=== PATIENT | female | born 1950 | race Caucasian/White ===

== ENCOUNTER 2024-04-12 18:06 | Emergency (ER) | payer MEDICARE, SELFPAY ==
[2024-04-12 18:16] VITALS: BP 165/82
[2024-04-12 18:30] LABS: % Basophils 0.9 % (0-2); % Eosinophils 0.7 % (0-6); % Immature Granulocytes 0.2 % (0-0.5); % Lymphocytes 31.6 % (20.5-51.1); % Monocytes 6.2 % (1.7-9.3); % Neutrophils 60.4 % (42.2-75.2); Absolute Basophils 0.1 10^3/uL (0-0.2); Absolute Lymphocytes 1.8 10^3/uL (1.2-3.4); Absolute Monocytes 0.4 10^3/uL (0.1-0.6); Absolute Neutrophils 3.4 10^3/uL (1.4-6.5); Hematocrit 33.7 % (37.0-47.0); Hemoglobin 11.5 g/dL (12.0-16.0); Mean Corp Hgb Conc. 34.1 g/dL (33.0-37.0); Mean Corpuscular Hgb 30.4 pg (27.0-31.0); Mean Corpuscular Volume 89.2 fL (81.0-99.0); Mean Platelet Volume 10.2 fL (7.4-10.4); Nucleated Red Blood Cells % 0 %; Platelet Count 198 10^3/uL (130-400); Red Blood Cell Count 3.78 10^6/uL (4.20-5.40); Red Cell Dist. Width 14.3 % (11.5-14.5); White Blood Cell Count 5.6 10^3/uL (4.8-10.8)
[2024-04-12 18:58] LABS: ALT (SGPT) 17 U/L (0-35); AST (SGOT) 28 U/L (14-36); Albumin 4.1 g/dl (3.5-5.0); Alkaline Phosphatase 56 U/L (38-126); Blood Urea Nitrogen 27 mg/dl (7-17); Calcium 8.6 mg/dl (8.4-10.2); Carbon Dioxide 19 mmol/L (22-30); Chloride 111 mmol/L (98-107); Glucose 85 mg/dl (70-99); Sodium 138 mmol/L (135-145); Total Bilirubin 0.3 mg/dl (0.2-1.3); Total Protein 7.1 g/dl (6.3-8.2); eGFR 42.88
[2024-04-12 20:18] VITALS: BMI 25.5
[2024-04-12 22:23] VITALS: BP 185/71
--- NOTE | 2024-04-12 22:50 | ED.GENMED ---
History of Present Illness
General
Chief Complaint: Dizziness
Source: patient
Exam Limitations: none
Time Seen by Provider: 04/12/24 21:49
Travel History
Have you had any contact with someone who has COVID-19?: No
Do you have any symptoms of coronavirus? Fever > 100 degrees, chills, cough, shortness of breath, sore throat, loss of taste or smell, muscle aches, or headache?: No
History of Present Illness
History of Present Illness:
74-year-old female presents for evaluation from urgent care. She states 8 days ago she bent over and hit her head on something sharp. Since then she has had headache dizziness and nausea. Patient seen urgent care and was sent here for further
imaging. She denies loss of conscious chest pain or shortness of breath. No vision change. No other complaints at this time
Phy Exam
Physical Exam
Physical Exam:
General: Well-appearing female no acute respiratory distress
HEENT: Normocephalic pupils equal round reactive to light neck is supple
Heart: Regular rate and rhythm no murmurs
Lungs: Clear no wheeze or rales
Neurologic exam alert and oriented no facial asymmetry pupils equal round reactive to light conversing appropriately no drift
Musculoskeletal exam: Spine is nontender
Course
Orders/Labs/Results
Orders:
Orders
04/12/24 18:18
Electrocardiogram (*1) Urgent
Reason for Study: Vertigo / Dizzy
EKG- Treatment ONCE
04/12/24 18:24
Complete Blood Count/With Diff Urgent
Comprehensive Metabolic Panel Urgent
04/12/24 20:04
CT Head W/o Iv Contrast Urgent
Comment:
Reason For Exam: dizziness/head injury
Abnormal Lab Results
04/12/24
18:24
RBC 3.78 L 10^6/uL
(4.20-5.40)
Hgb 11.5 L g/dL
(12.0-16.0)
Hct 33.7 L %
(37.0-47.0)
Chloride 111 H mmol/L
(98-107)
Carbon Dioxide 19 L mmol/L
(22-30)
BUN 27 H mg/dl
(7-17)
Creatinine 1.3 H mg/dL
(0.6-1.0)
04/12/24 18:24
04/12/24 18:24
Vital Signs
Initial and Last Documented VS:
Initial Vital Signs
Temp Pulse Resp BP Pulse Ox
98.3 F 75 18 165/82 100
04/12/24 18:16 04/12/24 18:16 04/12/24 18:16 04/12/24 18:16 04/12/24 18:16
Last Documented Vital Signs
Temp Pulse Resp BP Pulse Ox
98.3 F 100 18 185/71 99
04/12/24 18:16 04/12/24 22:23 04/12/24 18:16 04/12/24 22:23 04/12/24 22:23
MDM/Problems Addressed
Differential Diagnosis Includes:
Head injury 8 days ago with persistent nausea and dizziness. CT of the head was reviewed which is negative for acute finding. Suspect postconcussive syndrome. Labs reviewed without significant finding. Stable for discharge
*Critical Care Note
Total Time (30-74mins, 75-104mins- exclusive of procedures): Not Applicable
ED Attending Note
-
Portions of this chart may have been created with voice recognition software.� Occasional wrong word or��sound alike� substitutions may have occurred due to the inherent limitations of voice recognition software.
Discharge Plan
Departure
Patient Disposition: Home (Routine Discharge)
Date of Disposition: 04/12/24
Time of Disposition: 22:51
Patient with high blood pressure during this ER visit?: No
Discharge Problem:
Head injury
Instructions: Concussion, Adult ED
Referrals:
Melisa Ramesh MD [Family Provider] -
Activity Restrictions/Additional Instructions:
Rest. Use Tylenol for pain. Return here for worsening symptoms otherwise follow-up with family doctor
Interventions
Interventions:
ED- Fall Risk Assessment Last Done: 04/12/24 20:18
ED- Neurological Assessment Last Done: 04/12/24 20:18
ED- Cardiac Assessment Last Done: 04/12/24 20:18
ED Swallowing Screen Last Done: 04/12/24 20:18
Discharge Date and Time
Print Language: [id number]
== END 2024-04-12 22:58 | disposition home or self-care (01) ==
LOC: EMR 18:06
PROVIDERS: Emergency Medicine; EMERGENCY PHYSICIAN Emergency Medicine; FAMILY PHYSICIAN Family Medicine
DX: S09.90XA Unspecified injury of head, initial encounter (principal); W22.8XXA Striking against or struck by other objects, initial encounter
CPT/HCPCS: 99284; 70450; 80053; 85025; 93005